=== PATIENT | male | born 1965 | race Caucasian/White ===

== ENCOUNTER → 2017-06-12 | Outpatient (CLI) | payer BC ==
[~2017-06-12] MED LIST: AGM875 PO
--- NOTE | 2017-06-12 21:30 | DIAGNOSTIC IMAGING REPORT ---
R KNEE 1 OR 2 VIEWS ROUTINE CLINICAL HISTORY: 51 years-old Male presenting with M25.561 PAIN IN RIGHT KNEE. TECHNIQUE: Frontal and crosstable lateral views of the right knee were obtained. COMPARISON: None. FINDINGS: No acute fracture or malalignment. No advanced degenerative change. No knee joint effusion. No radiographic soft tissue abnormality. IMPRESSION: No acute osseous injury of the right knee. Electronically signed by: Felipe Good M.D. 06/12/2017 9:29 PM Dictated Date/Time: 06/12/2017 9:28 PM
== END | disposition home or self-care (01) ==
LOC: C.RAD 21:00
PROVIDERS: ATTEND Family Medicine
DX: M25.561 Pain in right knee (principal)

== ENCOUNTER 2017-10-28 20:05 | Emergency (ER) | payer BC, OTHER ==
[~2017-10-28] VITALS: Ht 175.3 cm; Wt 98.4 kg
[2017-10-28 20:08] VITALS: TEMP 36.5; Ht 175.3 cm; Wt 98.4 kg
--- NOTE | 2017-10-28 20:51 | DIAGNOSTIC IMAGING REPORT ---
RIGHT KNEE 3 VIEWS CLINICAL HISTORY: Right knee pain. FINDINGS: AP, crosstable lateral, and sunrise views of the right knee are compared to study dated 06/12/2017. The skeletal structures are well mineralized. No fracture is seen. The joint spaces are maintained. A joint effusion is identified. A calcified fabella is incidentally noted. The overlying soft tissues are within normal limits. IMPRESSION: Joint effusion with no acute bony abnormality identified. Electronically signed by: Margarito Scott M.D. 10/28/2017 8:49 PM Dictated Date/Time: 10/28/2017 8:48 PM
[2017-10-28] MEDS ORDERED: NAPR-1169 PO (21:16)
--- NOTE | 2017-10-28 21:17 | EMERGENCY ROOM VISIT NOTE ---
ED Visit Note First contact with patient: 20:12 CHIEF COMPLAINT: Right knee pain HISTORY OF PRESENT ILLNESS: This 52-year-old male patient presents to the emergency department, ambulatory, approximately 6 hours after sustaining an injury to the right knee while stepping up onto a 2 foot high ledge while using his right foot. The patient does report a history of knee injury in April with suspected meniscal injury. He was encouraged to use anti-inflammatory medications and follow-up with his primary care provider for possible physical therapy and orthopedics referral. The patient never followed up, and states his symptoms have been better than initial, however continuing to be present. The patient denies any other injuries besides their knee. The patient denies swelling or bruising. There is pain in the lateral aspect of the knee joint. They rate the pain as sharp and 7/10. The patient states they are able to walk on it, though walking is difficult. No numbness or tingling. No previous injuries to this knee. No ankle, foot or hip pain. The knee has not been locking up on the patient. REVIEW OF SYSTEMS: A 6 system review of systems was completed with positives and pertinent negatives listed in the HPI. ALLERGIES: None MEDICATIONS: Multivitamin PMH: None SOCIAL HISTORY: The patient lives locally with family. He denies drug, alcohol , tobacco use. PHYSICAL EXAM: Vital Signs: Reviewed Nurse's notes, vital signs stable. GENERAL : This is a 52-year-old white male, no acute distress, but appears in pain, well -developed, well-nourished. MENTAL STATUS: Alert, oriented to person place and time, and cooperative. MUSCULOSKELETAL: The right knee is mildly swollen. There is no ecchymosis. There is no joint effusion present. The patient is tender over the lateral aspect of the knee joint. There is mild lateral joint line tenderness. The patella does appropriately subluxate. Range of motion is full. Strength of the quads and hamstrings is 5/5. Jayden's is positive for pain. Janine's and Anterior Drawer tests are negative. There is discomfort, but no laxity with varus and valgus stressing. The foot and toes are warm and well-perfused. Dorsalis pedis pulse 2+. Sensation to pain and light touch is intact. Capillary refill less than 2 seconds. RADIOLOGY: RIGHT KNEE 3 VIEWS CLINICAL HISTORY: Right knee pain. FINDINGS: AP, crosstable lateral, and sunrise views of the right knee are compared to study dated 06/12/2017. The skeletal structures are well mineralized. No fracture is seen. The joint spaces are maintained. A joint effusion is identified. A calcified fabella is incidentally noted. The overlying soft tissues are within normal limits. IMPRESSION: Joint effusion with no acute bony abnormality identified. Electronically signed by: Margarito Scott M.D. 10/28/2017 8:49 PM Dictated Date/Time: 10/28/2017 8:48 PM EMERGENCY DEPARTMENT COURSE: I examined the patient. X-rays of the right knee were reviewed by myself and read by radiology and reveal a small joint effusion , but no acute bony abnormality. The patient was placed in a knee immobilizer under my direction and the position was satisfactory. The patient was instructed on the use of crutches. The patient was discharged home in good condition. I attest that I have personally reviewed the patient's current medication list. Blood Pressure Screening: Patient was found to have a slightly elevated blood pressure due to circumstances. I do not believe that the patient requires hypertension monitoring. Etiologies such as soft tissue injury, meniscal injury, fracture, dislocation, neurovascular compromise, compartment syndrome, as well as others were entertained. DIAGNOSIS: Right knee pain The chart was completed utilizing [employer] Speech voice recognition software. Grammatical errors, random word insertions, pronoun errors, and incomplete sentences are an occasional consequence of this system due to software limitations, ambient noise, and hardware issues. Any formal questions or concerns about the content, text, or information contained within the body of this dictation should be directly addressed to the provider for clarification. Current/Historical Medications Scheduled Naproxen (Naprosyn), 500 MG PO BID Allergies Coded Allergies: No Known Allergies (Unverified , ?, 10/28/17) Vital Signs Date Time Temp Pulse Resp B/P (MAP) Pulse Ox O2 Delivery O2 Flow Rate FiO2 10/28/17 21:41 66 18 137/83 97 10/28/17 20:08 36.5 77 16 163/95 97 Room Air Departure Information Impression Primary Impression: Right knee pain Dispostion Home / Self-Care Condition GOOD Prescriptions Naproxen (Naprosyn) 500 Mg Tab 500 MG PO BID, #60 TAB Prov: Vonda Chris, MAIRA 10/28/17 Referrals Mu Mazariegos M.D. (PCP) Baltazar Beltre D.O. Patient Instructions ED Immobilizer Knee, ED Knee Pain [facility], [facility] Additional Instructions You have been treated in the Emergency Department for Knee Pain. For pain control, you can use the following [id number] medicines (if >12 yo): Naproxen 500 mg every 12 hours as needed for pain. Take with food. Prolonged inappropriate use can lead to stomach upset or ulcers. (AND/OR) Acetaminophen(Tylenol) may be used for fever or pain. Use 1000mg every six hours as needed. Avoid using more than 3000mg in a 24 hour period. If this is a recent injury (<24 hrs), ice can be applied to the area of pain for the first 3 days to help decrease pain and inflammation. Ice massages can be performed by freezing water in a paper cup, peeling back the cup to expose the ice and then massaging over the affected area. You have been provided the number for an Orthopaedic Surgeon. You should call this number as soon as possible to establish a follow-up visit from today's Emergency Department visit. [Keep the knee brace in place until cleared by Orthopedics or you are able to bear weight without discomfort. Use the crutches you have been provided to keep ALL weight off of the knee until weight bearing is tolerable. Return to the Emergency Department if your current symptoms worsen despite treatment course outlined above. Problem Qualifiers Primary Impression: Right knee pain Chronicity: acute Qualified Codes: M25.561 - Pain in right knee
[2017-10-28 21:41] VITALS: BP 137/83; PULSE 66; O2SAT 97
== END 2017-10-28 21:40 | disposition home or self-care (01) ==
LOC: C.EDB 20:07 → C.EDD 21:40
DX: M25.561 Pain in right knee (principal); X50.1XXA Overexertion from prolonged static or awkward postures, initial encounter; Y92.9 Unspecified place or not applicable

== ENCOUNTER → 2017-10-30 | Outpatient (CLI) | payer OTHER ==
[~2017-10-30] MED LIST changes: -AGM875 PO; +NAPR-1169 PO
== END | disposition home or self-care (01) ==
LOC: C.RDSM 16:07
PROVIDERS: ATTEND Orthopaedic Surgery
DX: M79.604 Pain in right leg (principal)

== ENCOUNTER → 2017-11-05 | Outpatient (CLI) | payer OTHER ==
--- NOTE | 2017-11-05 07:43 | DIAGNOSTIC IMAGING REPORT ---
R LOWER EXT JOINT WITHOUT CLINICAL HISTORY: 52 years-old Male with RT KNEE PAIN. Acute lateral right knee pain with concern for meniscal tear. COMPARISON: Right knee radiographs 10/28/2017 TECHNIQUE: Multiplanar, multisequence MRI of the right knee was performed without intravenous contrast. FINDINGS: MENISCI: Multidirectional increased T2 signal involves the lateral meniscus body, anterior horn, posterior junction and posterior horn with areas of linear increased signal extending to the superior articular surfaces nicely seen on image 7 of series 7. Additionally, there is increased linear signal extending into the posterior meniscal root compatible with tear extension. There is suggestion of a flipped meniscal fragment adjacent to the posterior horn lateral meniscus, image 23 series 6. There is a subtle area of increased PD signal involving the posterior horn medial meniscus extending towards the inferior articular surface, image 18 series 7 and image 22 series 6 which is equivocal for a small meniscal tear. No displaced fragment or parameniscal cyst identified. CRUCIATE LIGAMENTS: The anterior and posterior cruciate ligaments are normal in signal, morphology and course. COLLATERAL LIGAMENTS: The popliteus tendon, biceps femoris tendon, fibular collateral ligament and iliotibial band are intact. The superficial and deep components of the medial collateral ligament are intact. Trace fluid is noted both superficial and deep to the intact MCL, likely reactive. EXTENSOR MECHANISM: The quadriceps and patellar tendons are intact. The medial and lateral patellar retinacula are intact. KNEE JOINT: There is a moderate to large knee joint effusion. No intra-articular loose body identified. There is only minimal tricompartmental joint space narrowing with low-grade chondral thinning. No osteochondral defect or high-grade chondromalacia identified. BONE MARROW: There is mild bone marrow edema involving the posterior aspect of the lateral tibial plateau nicely seen on image 5 of series 8 without associated fracture identified, likely reactive. SOFT TISSUES: Mild subcutaneous edema about the knee. Trace Galeas's cyst. IMPRESSION: 1. Complex tear of the lateral meniscus as above with extension into the posterior meniscal root. Displaced meniscal fragment is noted adjacent to the posterior horn. 2. Mild bone marrow edema of the posterior aspect of the lateral tibial plateau without fracture is likely reactive. 3. Equivocal small tear of the posterior horn medial meniscus as above. 4. Moderate to large knee joint effusion. 5. 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 The above report was generated using voice recognition software. It may contain grammatical, syntax or spelling errors. Electronically signed by: Juanito Jara M.D. 11/05/2017 7:42 AM Dictated Date/Time: 11/05/2017 7:23 AM
== END | disposition home or self-care (01) ==
LOC: C.MRI 06:01
PROVIDERS: ATTEND Orthopaedic Surgery
DX: S83.281A Other tear of lateral meniscus, current injury, right knee, initial encounter (principal); S83.241A Other tear of medial meniscus, current injury, right knee, initial encounter; M25.461 Effusion, right knee; X58.XXXA Exposure to other specified factors, initial encounter